=== PATIENT | female | born 1950 | race Caucasian/White ===

== ENCOUNTER 2018-06-19 15:51 | Emergency (ER) | payer OTHER ==
[~2018-06-19] VITALS: Ht 170.2 cm; Wt 74.0 kg
[2018-06-19] MEDS ORDERED: TYLENOL WITH C1 EACH PO (19:11)
[2018-06-19 19:22] VITALS: BP 121/100
== END 2018-06-19 20:59 | disposition home or self-care (01) ==
LOC: EME 15:51
DX: S20.212A Contusion of left front wall of thorax, initial encounter (principal); S06.9X1A Unspecified intracranial injury with loss of consciousness of 30 minutes or less, initial encounter; M54.2 Cervicalgia; V47.5XXA Car driver injured in collision with fixed or stationary object in traffic accident, initial encounter; Y92.410 Unspecified street and highway as the place of occurrence of the external cause; Z98.84 Bariatric surgery status
CPT/HCPCS: 70450; 71100; 72125